=== PATIENT | male | born 1970 | race Caucasian/White ===

== ENCOUNTER 2022-10-19 07:51 | Outpatient (CLI) | payer BC ==
--- NOTE | 2022-10-19 08:39 | CT Report ---
PROCEDURE: Low Dose Lung Cancer Screen INDICATIONS: FORMER SMOKER TECHNIQUE: Noncontrast low-dose axial images were acquired from the pulmonary apices to the posterior costophren ic angles. Multiplanar MIP reformats were then reconstructed. For radiation dose reduction, the follo wing was used: automated exposure control, adjustment of mA and/or kV according to patient size. COMPARISON: None. FINDINGS: Image quality: Excellent. Lungs and pleura: No suspicious lung nodules. Cystic changes are seen in lung apices bilaterally. No acute pulmonary opacity. No pleural effusion or pneumothorax. Mediastinum: Heart size is normal. No pericardial effusion. No mediastinal adenopathy by size crit eria. Thoracic aorta and central pulmonary arteries are normal in size. Esophagus is normal in [place]. Small hiatal hernia. Bones and chest wall: No suspicious bony lesions. No vertebral body compression fractures. No axil nereida or supraclavicular adenopathy by size criteria. The thyroid is unremarkable. Abdomen: There is a calcified gallstone. Gallbladder is contracted. Visualized upper abdomen solid o rgans and bowel loops appear normal in the absence of contrast. IMPRESSION: 1. No suspicious lung nodules. ACR lung RADS category 1. Recommend annual screening lung CT in 12 mon ths. 2. Small hiatal hernia. 3. Cholelithiasis. Reviewed by: Jae Gill MD on 10/19/2022 8:37 AM PST Approved by: Jae Gill MD on 10/19/2022 8:37 AM PST Station ID: [id number]
== END 2022-10-19 07:52 | disposition home or self-care (01) ==
LOC: DI 07:51
PROVIDERS: ATTEND Student in an Organized Health Care Education/Training Program
DX: Z12.2 Encounter for screening for malignant neoplasm of respiratory organs (principal); Z87.891 Personal history of nicotine dependence

== ENCOUNTER 2024-06-27 09:48 | Emergency (ER) | payer BC, OTHER ==
[2024-06-27 10:22] LABS: BASOPHILS % (AUTO) 0.5 %; EOSINOPHILS # (AUTO) 0.1 10^3/uL (0.0-0.7); EOSINOPHILS % (AUTO) 1.6 %; HCT - HEMATOCRIT 44.3 % (42.0-52.0); HGB - HEMOGLOBIN 15.2 g/dL (14.0-18.0); LYMPHOCYTES # (AUTO) 0.8 10^3/uL (1.5-3.5); LYMPHOCYTES % (AUTO) 9.7 %; MEAN CORPUSCULAR HEMOGLOBIN 32.3 pg (27.0-31.0); MEAN CORPUSCULAR HGB CONC 34.3 g/dL (32.0-36.0); MEAN CORPUSCULAR VOLUME 94.1 fL (80.0-94.0); MEAN PLATELET VOLUME 9.4 fL (7.4-11.4); MONOCYTES # (AUTO) 0.6 10^3/uL (0.0-1.0); MONOCYTES % (AUTO) 7.6 %; NEUTROPHILS # (AUTO) 6.6 10^3/uL (1.5-6.6); NEUTROPHILS % (AUTO) 80.4 %; PLT - PLATELET COUNT 183 10^3/uL (130-450); RED BLOOD COUNT 4.71 10^6/uL (4.70-6.10); RED CELL DISTRIBUTION WIDTH 11.9 % (12.0-15.0); WHITE BLOOD COUNT 8.2 x10^3/uL (4.8-10.8)
[2024-06-27 10:43] LABS: ALBUMIN 4.4 g/dL (3.2-5.5); ALBUMIN/GLOBULIN RATIO 1.8 (1.0-2.2); BILIRUBIN,TOTAL 0.7 mg/dL (0.2-1.0); CALCIUM 9.3 mg/dL (8.5-10.3); CREATININE 1.3 mg/dL (0.6-1.3); POTASSIUM 3.8 mmol/L (3.5-4.5); TOTAL PROTEIN 6.9 g/dL (6.4-8.9)
--- NOTE | 2024-06-27 11:08 | ED Physician Documentation ---
PD HPI ABD PAIN - Stated complaint Stated Complaint: LOWER ABD PX,NAUSEA - Chief complaint Chief Complaint: Abd Pain - History obtained from History obtained from: Patient - Additional information Additional information: 53-year-old gentleman with a history of hypercholesterolemia and hypothyroidism presents for the evaluation of intermittent abdominal pain and nausea. For the last 3 weeks she has had several episodes where he gets terrible diffuse abdominal pain and starts vomiting. On the days where this does not happen he feels relatively well. No history of abdominal surgeries. No blood in the vomit. No history of ulcer disease. PD PAST MEDICAL HISTORY - Past Medical History Past Medical History: No - Past Surgical History Past Surgical History: Yes Neuro: Other - Present Medications Home Medications: Ambulatory Orders Medication Instructions Recorded Confirmed Ondansetron Odt [Zofran] 4 mg TL Q6H PRN #10 tablet 06/27/24 - Allergies Allergies/Adverse Reactions: Allergies Allergy/AdvReac Type Severity Reaction Status Date / Time No Known Drug Allergies Allergy Verified 06/27/24 09:58 - Social History Does the pt smoke?: No Smoking Status: Never smoker Does the pt drink ETOH?: No Does the pt have substance abuse?: No - Immunizations Immunizations are current?: Yes PD ED PE NORMAL - Vitals Vital signs reviewed: Yes - General General: Alert and oriented X 3, No acute distress - Cardiac Cardiac: RRR, No murmur - Respiratory Respiratory: No respiratory distress, Clear bilaterally - Abdomen Abdomen: Normal bowel sounds, Soft, Other (Hyperactive bowel sounds without significant tenderness.) - Neuro Neuro: Alert and oriented X 3, Normal speech Results - Vitals Vitals: Vital Signs - 24 hr 06/27/24 06/27/24 09:58 11:55 Temperature 37 C Heart Rate 87 75 Respiratory 16 17 Rate Blood Pressure 106/79 108/79 O2 Saturation 100 97 Oxygen O2 Source Room air - Labs Labs: Laboratory Tests 06/27/24 06/27/24 06/27/24 10:18 10:18 10:27 WBC 8.2 RBC 4.71 Hgb 15.2 Hct 44.3 MCV 94.1 H MCH 32.3 H MCHC 34.3 RDW 11.9 L Plt Count 183 MPV 9.4 Neut # (Auto) 6.6 Lymph # (Auto) 0.8 L [place] # (Auto) 0.6 Eos # (Auto) 0.1 Baso # (Auto) 0.0 Absolute Nucleated RBC 0.00 Nucleated RBC % 0.0 Sodium 135 Potassium 3.8 Chloride 102 Carbon Dioxide 25 Anion Gap 8.0 BUN 17 Creatinine 1.3 Estimated GFR (MDRD) 58 L Glucose 113 H Calcium 9.3 Total Bilirubin 0.7 AST 17 ALT 23 Alkaline Phosphatase 62 Total Protein 6.9 Albumin 4.4 Globulin 2.5 Albumin/Globulin Ratio 1.8 Lipase 27 Urine Color DARK YELLOW Urine Clarity CLEAR Urine pH 5.5 Ur Specific [place] 1.025 Urine Protein NEGATIVE Urine Glucose (UA) 250 H Urine Ketones TRACE Urine Occult Blood NEGATIVE Urine Nitrite NEGATIVE Urine Bilirubin NEGATIVE Urine Urobilinogen 0.2 (NORMAL) Ur Leukocyte Esterase NEGATIVE Ur Microscopic Review NOT INDICATED Urine Culture Comments NOT INDICATED PD Medical Decision Making - ED course ED course: He presents with intermittent diffuse abdominal pain with vomiting. He is really not much pain right now. Differential would include Would include biliary colic, cholecystitis, atypical ACS, ulcer disease, or other intra- abdominal emergency. Workup demonstrates normal labs with normal white count no elevation in liver enzymes. His CT was read as having choledocholithiasis which is interesting given the lack of obstructive pattern on labs. As such I reached out to [facility] and spoke with Dr. Cox who graciously plans to take him for an outpatient ERCP on Saturday. Departure - Departure Disposition: 01 Home, Self Care Clinical Impression: Choledocholithiasis Condition: Good Record reviewed to determine appropriate education?: Yes Instructions: ED Gallstone W Biliary Colic Prescriptions: Ondansetron Odt [Zofran] 4 mg TL Q6H PRN #10 tablet PRN Reason: Nausea / Vomiting Comments: You were seen today for abdominal pain and we found that you have gallstones in your Bile ducts. Interestingly, this is not associated with any elevation in your liver enzymes which is atypical. I have reached out to Dr. Cox a bus operator in [place] and he plans to take you for an ERCP on Saturday. Do not eat or drink after midnight Saturday night. They will call you Saturday to arrange. Return if worse. Forms: PCP List, Activity restrictions
[2024-06-27] MEDS ORDERED: iohexoL-300 100 ML VIAL ONE (11:14)
[2024-06-27 11:33] LABS: BILIRUBIN,URINE NEGATIVE (NEGATIVE); GLUCOSE, URINE (UA) 250 mg/dL (NEGATIVE); KETONES,URINE (UA) TRACE mg/dL (NEGATIVE); LEUKOCYTE ESTERASE, URINE NEGATIVE (NEGATIVE); NITRITE,URINE NEGATIVE (NEGATIVE); OCCULT BLOOD,URINE NEGATIVE (NEGATIVE); PH,URINE 5.5 PH (5.0-7.5); PROTEIN,URINE NEGATIVE (NEGATIVE); UROBILINOGEN,URINE 0.2 (NORMAL) E.U./dL (NORMAL)
[2024-06-27 11:34] LABS: CLARITY,URINE CLEAR (CLEAR)
[2024-06-27] MEDS: LIDOCAINE VISCOUS 2% 15 ML UDC MM STA (11:50)
[2024-06-27] MEDS: MAG HYDROX/AL HYDROX/SIMETH 30 ML UDC PO STA (11:50)
[2024-06-27 11:56] VITALS: BP 108/79
--- NOTE | 2024-06-27 12:57 | CT Report ---
PROCEDURE: Abdomen/Pelvis W INDICATIONS: IV only upper abd pain CONTRAST: 100 TECHNIQUE: After the administration of intravenous contrast, a CT scan of the abdomen and pelvis was performed. Images were recorded and evaluated at appropriate window settings. Reformats: coronal and sagittal. F or radiation dose reduction, the following was used: automated exposure control, adjustment of mA and /or kV according to patient size. COMPARISON: None. FINDINGS: Image quality: Diagnostic. Lower chest: Unremarkable. Liver: No solid mass. Mild diffuse hypoattenuation of the liver. Gallbladder: Decompressed with gallstones. No pericholecystic fluid. Biliary tree: No intrahepatic or extrahepatic dilation, accounting for age. Multiple stones in the di stal CBD measuring up to 4 mm ( 7-60, ). CBD measures 6 mm. Spleen: No splenomegaly. Pancreas: No pancreatic ductal dilation. Adrenals: No adrenal nodule. Kidneys and ureters: No hydronephrosis. No renal cystic lesion which requires follow up. No solid mas s. Stomach, bowel and peritoneum: No gastric or small bowel dilation. No abnormal wall thickening. No pa thologic free fluid. Normal appendix (). Colonic diverticulosis, without diverticulitis. Lymph nodes: No central or retroperitoneal adenopathy. Vessels: No infrarenal aortic aneurysm. Patent portal vein. Infrarenal abdominal aorta is ectatic belgica suring 2.8 x 2.7 cm with moderate to marked calcified and noncalcified atherosclerotic plaque. Proxim al mesenteric vessels are patent. Patent hepatic, splenic and bilateral renal veins. PELVIS Reproductive organs: Unremarkable. Bladder: No abnormal wall thickening, accounting for underdistention. Pelvic lymph nodes: No pelvic adenopathy by size criteria. Bones: No aggressive osseous abnormality. Other: Small fat-containing umbilical hernia. IMPRESSION: 1.Gallbladder is decompressed with gallstones and no evidence of acute cholecystitis. 2.Choledocholithiasis with multiple stones in the distal CBD with no intra or extrahepatic biliary du ctal dilatation. CBD measures 6 mm and stones measure up to 4 mm. Consider GI consultation and an ERC P for further evaluation. 3.Mild diffuse hypoattenuation of the liver which may be seen in the setting of steatosis. 4.Colonic diverticulosis, without diverticulitis. Reviewed by: Pastora Luu MD on 06/27/2024 11:55 AM AKDT Approved by: Pastora Luu MD on 06/27/2024 11:55 AM LEONARDO Station ID: [id number]
[2024-06-27 13:39] VITALS: O2SAT 98
[2024-06-27] MEDS: iohexoL-300 100 ML VIAL IVP ONE (15:55)
== END 2024-06-27 13:36 | disposition home or self-care (01) ==
LOC: ED 09:48
DX: K80.50 Calculus of bile duct without cholangitis or cholecystitis without obstruction (principal); E78.00 Pure hypercholesterolemia, unspecified; E03.9 Hypothyroidism, unspecified
CPT/HCPCS: 36415; 74177; 80053; 81003; 83690; 85025; 99284; A9270; Q9967; 81001; 87086